=== PATIENT | male | born 1970 | race Caucasian/White ===

== ENCOUNTER 2018-03-13 16:24 | Emergency (ER) | payer OTHER ==
[2018-03-13] MEDS ORDERED: Adacel (T-DAP) 0.5 ML SYRINGE ONE (17:31)
== END 2018-03-13 17:34 | disposition home or self-care (01) ==
LOC: ERS 16:24
DX: S51.852A Open bite of left forearm, initial encounter (principal); S50.811A Abrasion of right forearm, initial encounter; N40.0 Benign prostatic hyperplasia without lower urinary tract symptoms; E78.5 Hyperlipidemia, unspecified; Z79.899 Other long term (current) drug therapy; W55.01XA Bitten by cat, initial encounter
CPT/HCPCS: 90471; 90715

== ENCOUNTER 2018-03-23 16:44 | Emergency (ER) | payer OTHER ==
[2018-03-23] MEDS ORDERED: Fentanyl 100 MCG/2 ML VIAL ONE ×2 (17:54→18:01)
[2018-03-23] MEDS ORDERED: Lidocaine 2% Jelly 5 ML TUBE ONE (18:01)
[2018-03-23 19:13] LABS: Bilirubin Moderate (Negative); Blood, Urine Large (Negative); Clarity CLOUDY (Clear); Glucose, Urine (Dipstick) Negative (Negative); Leukocyte Small (Negative); Nitrite Positive (Negative); Protein, Urine (Dipstick) 100 mg/dL (Neg-Trace); Specific Gravity, Urine 1.005 (1.002-1.036); Urobilinogen 0.2 mg/dL (0.2-1.0); pH, Urine 5.5 (5.0-9.0)
[2018-03-23 19:15] LABS: Bacteria/HPF None Seen HPF (None Seen); Hyaline Casts/LPF 0-3 HYALINE CAST LPF (0-3 Hyaline); RBC/HPF GREATER THAN 50-TNTC HPF (0-3); Squamous Epithelial None Seen HPF (0-3); WBC/HPF None Seen HPF (0-3)
--- NOTE | 2018-03-24 02:03 | CON ---
DATE OF CONSULTATION: 03/23/2018 REASON FOR CONSULTATION: Gross hematuria and urinary retention after transurethral resection of prostate. HISTORY OF PRESENT ILLNESS: Mr. Holger Bazzi is a pleasant 47-year-old, retired from the [employer] with a long-standing issue of urologic issues, primarily related to his obstructive prostate gland. The patient also has a history of Peyronie disease and Dupuytren contractures of the hands. He reports that he underwent a transurethral resection of the prostate gland on 03/22/2018 in [place]. He reports that he had an indwelling Luna catheter overnight. This was subsequently removed this morning and after a trial of void, he was allowed home. The patient drove with his from [place] to [place], [place] where his urinary retention symptoms became too severe and he struggled for about 2 hours to urinate and was able to get a small amount of urine out. This was very bloody. He subsequently presented to the [facility] and was evaluated here in the emergency department. The patient underwent an attempted catheterization, but a catheter could not be placed. I was consulted due to the fact that the patient was in obvious urinary retention and had recent genitourinary surgery and was passing gross blood per urethra. ALLERGIES: NO KNOWN DRUG ALLERGIES. MEDICATIONS: Complete outpatient medication list consists of: 1. Tamsulosin 0.4 mg p.o. daily. 2. Atorvastatin 40 mg p.o. daily. 3. Phenazopyridine 100 mg p.o. t.i.d. PAST MEDICAL HISTORY: 1. BPH with obstruction. 2. History of Peyronie disease. 3. History of Dupuytren disease. PAST SURGICAL HISTORY: Transurethral resection of prostate gland on 03/22/2018. FAMILY MEDICAL HISTORY: The patient's father is of lung cancer with metastasis. The patient's mother is alive. No family history of genitourinary difficulties. REVIEW OF SYSTEMS: CONSTITUTIONAL: Negative for fever or chills. HEAD, EYES, EARS, NOSE, AND THROAT: Negative. CARDIOVASCULAR: Negative review of systems. No current chest pain or palpitations. RESPIRATORY: Negative. No current history of chest cold, shortness of breath, or cough. GASTROINTESTINAL: Negative. GENITOURINARY: The patient reports that he is unable to void, has gross blood passing per urethra, also reports a history of Peyronie disease with curvature and angulation. MUSCULOSKELETAL: Negative except for the history of contractures in his hands as noted. SKIN: Negative. NEUROLOGIC: Negative. ENDOCRINOLOGIC: No history of diabetes. HEMATOLOGIC: Negative. No blood clotting disorders. PHYSICAL EXAMINATION: VITAL SIGNS: Blood pressure is 99/89, pulse is 98, respirations are 22, temperature is 98.9. The patient reports that his pain level at a level of 10. HEAD, EYES, EARS, NOSE, AND THROAT: Extraocular movements are intact. Sclerae are anicteric. Oropharynx is clear. NECK: Supple. LUNGS: Clear to auscultation bilaterally. CARDIAC: Regular rate and rhythm without murmur, rub, or gallop. ABDOMEN: Soft and nontender except in the suprapubic area where the patient reports tenderness on palpation. GENITOURINARY: Phallus is circumcised, swelled, obvious external lesion. The patient is attempting to void and is able to. There is gross blood at the patient's urethral meatus. Digital rectal examination was not performed due to the recent surgery. EXTREMITIES: Appear within normal limits. NEUROLOGIC: The patient is able to ambulate and is able to support his weight. All 4 extremities are functional. ASSESSMENT AND PLAN: Urinary retention, gross blood at the meatus. Plan will be for a cystoscopic assessment of this patient. Please see separate procedure note for cystoscopy and additional indications and commentary. Job ID: [id number]
--- NOTE | 2018-03-25 11:16 | OP ---
DATE OF PROCEDURE: 03/23/2018 PREPROCEDURE DIAGNOSES: 1. Urinary retention. 2. Gross hematuria. 3. BPH with obstruction, status post transurethral resection of prostate gland on 03/22/2018 at the [facility] in [place]. POSTPROCEDURE DIAGNOSES: 1. Urinary retention. 2. Gross hematuria. 3. BPH with obstruction, status post transurethral resection of prostate gland on 03/22/2018 at the [facility] in [place]. 4. Clot retention in the prostatic bed. PROCEDURE PERFORMED: Cystourethroscopy, [id number]. CONSENT: Written with the patient assent. ANESTHESIA: Fentanyl 100 mcg and local anesthetic per urethra, viscous lidocaine 5 mL, 2%. INDICATIONS AND HISTORY: Mr. Holger Bazzi is a pleasant 47-year-old white male, who underwent a transurethral resection of prostate at the [facility] in [place] on 03/22/2018. His postoperative course was apparently uncomplicated. He had overnight indwelling Luna catheter, which was discontinued on postoperative day #1. He apparently passed a voiding trial in [place] and was discharged home. The patient drove from [place] to and developed severe urinary retention symptoms. He was to void and was in severe pain; subsequently, he presented to [facility] Emergency Department in acute urinary retention with severe pain. The patient was in agreement to proceed with cystoscopic assessment. DESCRIPTION OF PROCEDURE: The patient was appropriately identified and informed written consent was obtained. The patient was prepped and draped in usual sterile fashion using Betadine prep. Urethral meatus had blood present at the tip. There was suprapubic fullness present. Full sterile prep and draping was performed. Cystoscopic assessment was then performed using a 14-[place] [facility] flexible cystourethroscope. This was then introduced per urethra and the patient's urethra was examined. The patient had no evidence of urethral injury of any sort. The sphincter appeared to be functional and using irrigation, we entered the prostate bed, which had a large amount of clot lodged in it, unclear if there was ongoing or continuing bleeding. The patient's bladder was filled with dark bloody colored urine and a thorough evaluation of the bladder could not be obtained. We placed a 0.035 guidewire into the patient's bladder, subsequently introduced a 22-[place] 3-way silicone irrigation catheter into the patient's bladder. This was filled to a 30 mL volume. The patient's bladder was then initially drained of bloody and clot-like material. Subsequently, we hand irrigated the patient's bladder until it was clear and placed the patient on continuous bladder irrigation. The patient's urine was essentially clear after hand irrigation indicating a clot retention episode. DISPOSITION: The patient is suitable for discharge home. The side arm on the irrigation catheter may be plugged. We would recommend running through the existing irrigation bag until it is completed before discharging the patient from the emergency department. The patient should be discharged home with irrigation supplies and he should return to [place] if necessary through the emergency department for further evaluation and assessment if he has further obstruction events. The patient will be provided with irrigation supplies and may hand irrigate if he develops a gross hematuria episode between here and [place]. I think, he would be suitable for home management and evaluation in the Clinic in [place] for a voiding trial next week. Job ID: [id number]
== END 2018-03-23 19:27 | disposition home or self-care (01) ==
LOC: ERS 16:44
DX: N13.9 Obstructive and reflux uropathy, unspecified (principal); I49.9 Cardiac arrhythmia, unspecified; N40.0 Benign prostatic hyperplasia without lower urinary tract symptoms; E78.5 Hyperlipidemia, unspecified; Z79.899 Other long term (current) drug therapy
CPT/HCPCS: 51702; 81003; 81015; 87086; 96374; 96376; J3010

== ENCOUNTER 2018-08-01 19:33 | Emergency (ER) | payer OTHER ==
[2018-08-01] MEDS ORDERED: Ketorolac Tromethamine 30 MG/ML VIAL ONE (19:56)
--- NOTE | 2018-08-01 20:31 | RAD ---
EXAM: LUMBAR SPINE THREE VIEWS: 08/01/18 HISTORY: Back spasm, low back pain. FINDINGS: Postoperative changes at L1-L2 with intradiscal prosthesis and pedicle screws. No significant malalig nment. No acute fracture. IMPRESSION: Postoperative changes at L1-L2 with pedicle screws and intradiscal prosthesis. No acute fracture or dislocation. POS: [facility]
== END 2018-08-01 21:39 | disposition home or self-care (01) ==
LOC: ERS 19:33
DX: M62.830 Muscle spasm of back (principal); N40.0 Benign prostatic hyperplasia without lower urinary tract symptoms; E78.5 Hyperlipidemia, unspecified; F41.9 Anxiety disorder, unspecified; Z79.899 Other long term (current) drug therapy
CPT/HCPCS: 72100; 96374; J1885

== ENCOUNTER 2018-12-31 06:48 | Day surgery (SDC) | payer OTHER ==
[2018-12-28 09:01] VITALS: BMI 32.5
[2018-12-31] MEDS ORDERED: Lorazepam 1 MG TAB ONE (07:42)
[2018-12-31 07:58] VITALS: BP 123/91; TEMP 97.2
--- NOTE | 2018-12-31 09:16 | RAD ---
Myelogram of cervical and lumbar spine CLINICAL HISTORY: Pain PROCEDURE: Informed consent was obtained. [employer] Operator imaging was performed. Patient was placed in a prone position and the skin of the low back was prepped and draped in a standard sterile fashion. Topical anesthesia was achieved with buffered 1% lidocaine. 22-gauge spinal needle was then advanced uneventf ully into the thecal sac from a posterior para midline approach at the left L4 level. 9 cc of radiopaque contrast was instilled under low pressure into the thecal sac, upon return of clear colorl ess CSF the needle hub. Imaging was stored for documentation. Needle was removed. Patient tolerated the procedure well, without complication evident. Patient was then transferred to CT to undergo subsequent CT myelogram imaging. Reference separate riley leyva(s) for additional details. FINDINGS: Intraoperative imaging reveals a needle overlying the lumbar spinal canal, with subsequent instillation of radiopaque contrast within the thecal sac. Fluoroscopy data:0.3minutes, 37mcg/sq m IMPRESSION: Technically successful myelogram, as above.
--- NOTE | 2018-12-31 09:24 | CT ---
CT LUMBAR SPINE WITH CONTRAST: HISTORY: Back Pain. COMPARISON: No prior CT exams of the lumbar spine available. FINDINGS: The conus medullaris is normal in morphology, terminating at the superior L2 level. There is mild congenital AP diameter narrowing of the vertebral canal and neural foramina, on the bas is of shortened pedicles. There is intradiscal fusion device of L1-2 disc space, and bilateral pedicle screws of L1 and L2 with bilateral vertical interconnecting rods. This does produce streak artifact that limits visualization within this region. L1-2:Mild effacement of ventral thecal sac due to broad-based osteophyte, left asymmetric. There is m ild to moderate osseous narrowing of the left neural foramen and mild right neural foraminal narrowing. L2-3:Broad-based disc osteophyte is present with mild disc space narrowing and mild bilateral facet o steoarthritis. Moderate central canal stenosis with crowding of the bilateral traversing L3 nerve roots. Moderate narrowing of left and mild narrowing of right neural foramen. There is mild bilateral facet osteoarthritis. L3-4:There is a broad-based disc osteophyte with superimposed central disc protrusion. Mild to modera te narrowing of the central canal. Mild bilateral neural foraminal narrowing. There is mild bilateral facet osteoarthritis. L4-5:Broad-based mild disc bulge. No significant central canal stenosis. There is mild narrowing of t he bilateral neural foramina and mild bilateral facet osteoarthritis. L5-S1:No significant central canal stenosis. Mild bilateral neural foraminal narrowing and mild bilat eral facet osteoarthritis. 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 Transcribed Date/Time: 12/31/2018 9:37 AM
--- NOTE | 2018-12-31 09:30 | CT ---
CT CERVICAL SPINE WITH CONTRAST: HISTORY: Neck Pain. COMPARISON: None. FINDINGS: The craniocervical junction is unremarkable. Extensive anterior and posterior fusion spans the C3-C7 segments, including multilevel anterior plate and vertebral body screw fixation, intervening disc space prostheses, and multilevel bilateral pedicle screw with bilateral vertical interconnecting rods, producing marked beam attenuation artifac t, limiting evaluation. There is slight reversal of the normal cervical curvature. C1-2:No significant stenosis. C2-3:Broad-based disc osteophyte mildly effaces the ventral thecal sac with slight ventral cord anastacia ening. There is bilateral uncinate process hypertrophy with mild bilateral neural foraminal stenosis. C3-4:Right asymmetric broad-based osteophyte with right ventral hemicord flattening. There is right g reater than left uncinate process hypertrophy as well as facet hypertrophy with mild bilateral neural foraminal narrowing. C4-5:Right asymmetric osteophyte with mild ventral cord effacement. There is bilateral uncinate proce ss and facet hypertrophy with moderate left and mild right neural foraminal narrowing. C5-6:Right paracentral focal osteophyte effaces ventral aspect of cervical spinal cord. There is mild bilateral neural foraminal narrowing due to uncinate process and facet hypertrophy. C6-7: Not reliably visualized due to extensive streak artifact mild effacement of ventral thecal sac is suggested by osteophyte ridge. Probable mild bilateral osseous narrowing of neural foramina. C7-T1:Mild effacement of ventral thecal sac by disc osteophyte formation. There is bilateral osseous narrowing of the neural foramina. IMPRESSION: 1. Extensive operative change of the anterior and posterior column of the cervical spine producing p rominent beam attenuation artifact which limits evaluation. 2. There are multilevel degenerative changes as outlined above which result in multilevel central can al narrowing with cord effacement, and bilateral osseous compromise of the neural foramina. Transcribed Date/Time: 12/31/2018 9:42 AM
[2018-12-31] MEDS ORDERED: Iopamidol-M 300 61% 15 ML VIAL ONE (12:39)
== END 2018-12-31 09:50 | disposition home or self-care (01) ==
LOC: RAD 06:48
PROVIDERS: ATTEND Neurological Surgery
PROC: B01B1ZZ Fluoroscopy of Spinal Cord using Low Osmolar Contrast (ICD-10-PCS; principal; 2018-12-31)
DX: M48.02 Spinal stenosis, cervical region (principal); M51.26 Other intervertebral disc displacement, lumbar region; M48.061 Spinal stenosis, lumbar region without neurogenic claudication; M51.36 Other intervertebral disc degeneration, lumbar region; Z79.899 Other long term (current) drug therapy; Z98.1 Arthrodesis status; Z91.040 Latex allergy status
CPT/HCPCS: 62305; 72126; 72132; Q9967

== ENCOUNTER 2019-02-06 07:34 | Outpatient (CLI) | payer OTHER ==
[2019-02-06 10:49] LABS: Hemoglobin 16.5 g/dL (14.0-18.0); Mean Corpuscular HGB CONC 34.8 g/dL (32.0-36.0); Mean Corpuscular Hemoglobin 32.4 pg (27.0-31.0); Mean Platelet Volume 9.2 fL (7.4-10.4); Platelet Count 186 thou/uL (130-400); RBC Distribution Width 11.8 % (11.5-14.5); White Blood Cell (WBC) Count 5.7 thou/uL (4.8-10.8)
[2019-02-06 11:40] LABS: Anion Gap 15 mmol/L (10-20); BUN (Urea Nitrogen) 16 mg/dL (8.9-20.6); Calc. Creatinine Clearance 0 mL/min (70-130); Calcium 9.5 mg/dL (7.8-10.44); Carbon Dioxide 23 mmol/L (22-29); Chloride 105 mmol/L (98-107); Estimated GFR-MDRD 74; Glucose 83 mg/dL (70-105); Potassium 3.6 mmol/L (3.5-5.1); Sodium 139 mmol/L (136-145)
--- NOTE | 2019-02-07 07:05 | EKG ---
Test Reason : Blood Pressure : / mmHG Vent. Rate : 087 BPM Atrial Rate : 087 BPM P-R Int : 124 ms QRS Dur : 088 ms QT Int : 354 ms P-R-T Axes : 068 061 048 degrees QTc Int : 425 ms Normal sinus rhythm Normal ECG When compared with ECG of 27-APR-2016 19:32, No significant change was found Confirmed by DR. Nicko HOWE (3) on 02/07/2019 7:05:12 AM Referred By: IRVING Confirmed By:DR. Nicko HOWE
== END 2019-02-06 07:35 | disposition home or self-care (01) ==
LOC: LABBT 07:34
PROVIDERS: ATTEND Neurological Surgery
DX: Z01.818 Encounter for other preprocedural examination (principal); M54.16 Radiculopathy, lumbar region
CPT/HCPCS: 80048; 85027; 93005; 93010

== ENCOUNTER 2019-02-06 08:30 | Inpatient (IN) | payer OTHER ==
[2019-02-06 08:35] VITALS: BMI 32.5
[2019-02-11] MEDS ORDERED: Sodium Chloride 0.9% 10 ML ONE (06:35)
[2019-02-11] MEDS ORDERED: Fentanyl 100 MCG/2 ML VIAL ONE ×4 (07:03→09:17)
[2019-02-11] MEDS ORDERED: Meperidine HCl/PF 25 MG/ML VIAL ONE (08:45)
[2019-02-11] MEDS ORDERED: Tamsulosin HCl 0.4 MG CAP ONE (08:59)
[2019-02-11] MEDS ORDERED: Ondansetron PF 4 MG/2 ML Vial ONE (09:11)
[2019-02-11] MEDS ORDERED: Ketorolac Tromethamine 30 MG/ML VIAL ONE (10:39)
[2019-02-11] MEDS ORDERED: Glycopyrrolate 0.2 MG/ML 5 ML SYRINGE ONE (10:39)
[2019-02-11] MEDS ORDERED: Dexamethasone 20 MG/5 ML VIAL ONE (10:39)
[2019-02-11] MEDS ORDERED: Lidocaine 1% PF 5 ML VIAL ONE (10:39)
[2019-02-11] MEDS ORDERED: PROPOFOL 200 MG/20 ML VIAL ONE (10:39)
[2019-02-11] MEDS ORDERED: Rocuronium Bromide 10 MG/ML (10ML VIAL) ONE (10:39)
--- NOTE | 2019-02-11 14:30 | OP ---
DATE OF PROCEDURE: 02/11/2019 LINOLEUM TILE FLOOR LAYER: [place]. PROCEDURE PERFORMED: Removal of hardware, L1-L2; expiration of spinal fusion, L1-L2; revision of fusion, L1-L2; BMP; cancellous bone chips. DESCRIPTION OF PROCEDURE: The patient was brought to the operating room and intubated. He was rolled in a prone position on gel-filled chest rolls. An incision was reopened and the L1-L2 level was exposed. We removed the previous hardware without difficulty. We explored the spinal fusion and could not be convinced whether it was solid or not. We then prepared the posterolateral surfaces for the purpose of arthrodesis and a combination of BMP on Gelfoam with cancellous bone chips was laid over the lateral and posterolateral surfaces for the purpose of arthrodesis. Vancomycin powder was applied. MAC hemostasis was secured. The wound was closed in anatomic layers. Job ID: [id number]
--- NOTE | 2019-02-12 11:17 | DIS ---
DATE OF ADMISSION: 02/11/2019 DATE OF DISCHARGE: 02/11/2019 The patient is a 48-year-old male, who underwent removal of hardware at L1, L2 and expiration of spinal fusion on 02/11/2019. Following the surgery, he was transitioned to Day Stay, where his pain was well controlled with p.o. medications. He was tolerating a regular diet, and he was voiding appropriately. He ambulated without any difficulty. He was subsequently discharged to home that day. I discussed home care and precautions and the patient was prescribed Crandall and Zanaflex. He will follow up in 2 weeks in the office. Job ID: [id number]
== END 2019-02-11 10:50 | disposition home or self-care (01) | DRG 460 ==
LOC: SURG A 02-11 05:49
PROVIDERS: ADMIT Neurological Surgery; ATTEND Neurological Surgery
PROC: 0SG00K1 Fusion of Lumbar Vertebral Joint with Nonautologous Tissue Substitute, Posterior Approach, Posterior Column, Open Approach (ICD-10-PCS; principal; 2019-02-11)
PROC: 0QP004Z Removal of Internal Fixation Device from Lumbar Vertebra, Open Approach (ICD-10-PCS; 2019-02-11)
PROC: 3E0U0GB Introduction of Recombinant Bone Morphogenetic Protein into Joints, Open Approach (ICD-10-PCS; 2019-02-11)
DX: M54.16 Radiculopathy, lumbar region (principal); E78.5 Hyperlipidemia, unspecified; G43.909 Migraine, unspecified, not intractable, without status migrainosus; N40.0 Benign prostatic hyperplasia without lower urinary tract symptoms; Z85.828 Personal history of other malignant neoplasm of skin; Z79.899 Other long term (current) drug therapy; Z88.8 Allergy status to other drugs, medicaments and biological substances; Z91.048 Other nonmedicinal substance allergy status
CPT/HCPCS: 76000; J0131; J0690; J1100; J1885; J2001; J2175; J2405; J2704; J3010; J3370; J3490

== ENCOUNTER 2019-02-12 20:26 | Emergency (ER) | payer OTHER | END 2019-02-12 20:57 | disposition home or self-care (01) | LOC: ERS 20:26 | DX: Z48.817 Encounter for surgical aftercare following surgery on the skin and subcutaneous tissue (principal); I49.9 Cardiac arrhythmia, unspecified; E78.5 Hyperlipidemia, unspecified; F41.9 Anxiety disorder, unspecified ==

== ENCOUNTER 2019-02-25 00:17 | Emergency (ER) | payer OTHER | END 2019-02-25 02:11 | disposition home or self-care (01) | LOC: ERS 00:17 | DX: L50.0 Allergic urticaria (principal); I49.9 Cardiac arrhythmia, unspecified; N40.0 Benign prostatic hyperplasia without lower urinary tract symptoms; E78.5 Hyperlipidemia, unspecified; E78.00 Pure hypercholesterolemia, unspecified; F41.9 Anxiety disorder, unspecified; Z79.899 Other long term (current) drug therapy | CPT/HCPCS: 99282 ==

== ENCOUNTER 2019-03-06 15:44 | Outpatient (CLI) | payer OTHER ==
--- NOTE | 2019-03-06 17:43 | RAD ---
LUMBAR SPINE: 03/06/19 Two views. HISTORY: Follow-up surgery. Skin marleni are noted posterior to the L2-3 level. Interbody disc implant is in place at the L1-[address] The vertebral bodies maintain height and alignment. Mild degenerative osteophytes. Mild facet hyp ertrophy. IMPRESSION: Postoperative and degenerative changes noted. POS: [facility]
== END 2019-03-06 15:45 | disposition home or self-care (01) ==
LOC: TBSIIMAG 15:44
PROVIDERS: ATTEND Neurological Surgery
DX: M47.26 Other spondylosis with radiculopathy, lumbar region (principal); Z96.7 Presence of other bone and tendon implants
CPT/HCPCS: 72100

== ENCOUNTER 2019-04-10 07:01 | Inpatient (IN) | payer OTHER ==
[2019-04-09 10:19] VITALS: BMI 32.5
[2019-04-10 07:51] LABS: #Basophils 0.1 thou/uL (0.0-0.2); #Eosinphils 0.2 thou/uL (0.0-0.7); #Lymphocytes 2.4 thou/uL (1.20-3.40); #Monocytes 0.5 thou/uL (0.11-0.59); #Neutrophils 2.7 thou/uL (1.40-6.50); %Basophils 1.1 % (0.0-1.0); %Lymphocytes 40.7 % (21.0-51.0); %Monocytes 9.2 % (0.0-10.0); %Neutrophils 45.1 % (42.0-75.0); Hemoglobin 16.7 g/dL (14.0-18.0); Mean Corpuscular HGB CONC 35.9 g/dL (32.0-36.0); Mean Corpuscular Hemoglobin 33.5 pg (27.0-31.0); Mean Corpuscular Volume 93.5 fL (78.0-98.0); Mean Platelet Volume 8.7 fL (7.4-10.4); Platelet Count 186 thou/uL (130-400); RBC Distribution Width 11.7 % (11.5-14.5); Red Blood Cell (RBC) Count 4.97 mill/uL (4.70-6.10); White Blood Cell (WBC) Count 5.9 thou/uL (4.8-10.8)
[2019-04-10 08:04] LABS: Anion Gap 13 mmol/L (10-20); BUN (Urea Nitrogen) 11 mg/dL (8.9-20.6); Calc. Creatinine Clearance 120 mL/min (70-130); Calcium 9.2 mg/dL (7.8-10.44); Carbon Dioxide 28 mmol/L (22-29); Chloride 104 mmol/L (98-107); Estimated GFR-MDRD 75; Glucose 103 mg/dL (70-105); Potassium 3.9 mmol/L (3.5-5.1); Sodium 141 mmol/L (136-145)
[2019-04-10] MEDS ORDERED: Fentanyl 100 MCG/2 ML VIAL ONE ×3 (09:34→13:17)
[2019-04-10] MEDS ORDERED: Midazolam HCl 2 mg/2 ml Vial ONE ×2 (09:34→09:36)
[2019-04-10] MEDS ORDERED: Famotidine/PF 20 mg/2ml Vial ONE (09:35)
[2019-04-10] MEDS ORDERED: Ondansetron PF 4 MG/2 ML Vial ONE ×2 (09:36→10:00)
[2019-04-10] MEDS ORDERED: Succinylcholine Chloride 20 MG/ML 10 ml SYRINGE FS ONE (10:00)
[2019-04-10] MEDS ORDERED: PROPOFOL 200 MG/20 ML VIAL ONE (10:00)
[2019-04-10] MEDS ORDERED: Dexamethasone 20 MG/5 ML VIAL ONE (10:00)
[2019-04-10] MEDS ORDERED: Glycopyrrolate 0.2 MG/ML 5 ML SYRINGE ONE (10:00)
[2019-04-10] MEDS ORDERED: Rocuronium Bromide 10 MG/ML (10ML VIAL) ONE (10:00)
[2019-04-10] MEDS ORDERED: Lidocaine 1% PF 5 ML VIAL ONE (10:00)
--- NOTE | 2019-04-10 12:15 | OP ---
DATE OF PROCEDURE: 04/10/2019 DIRECTOR LIFE SCIENCES: Nava Ware PA-C PROCEDURES PERFORMED: Exploration of spinal fusion C3 though C7, removal of hardware C3 through C7, posterolateral arthrodesis, demineralized bone matrix C3 through C7. DESCRIPTION OF PROCEDURE: The patient was brought to the operating room and intubated. He was rolled in a prone position on gel-filled chest rolls. The previous incision was reopened and the prior hardware was identified. The rods and nuts were removed without difficulty. The screws, however, were quite difficult to remove. Ultimately, we were unable to remove right C6, right C7, and left C7 as they were completely plastered into the bone. Next, the wound was extensively irrigated and MAC hemostasis was secured. The posterolateral surfaces were prepared for arthrodesis. As during exploration, we could not be certain that there was adequate arthrodesis. We laid demineralized bone matrix over the lateral recesses for arthrodesis from C3 through C7. Vancomycin powder was then applied, and the wound was closed in anatomic layers over drain. Job ID: [id number]
[2019-04-10] MEDS ORDERED: Promethazine HCl 25 MG/ML VIAL SLOW IVP PRN (12:24)
[2019-04-10] MEDS ORDERED: Ondansetron HCl/PF 4 MG/2 ML Vial IVP PRN (12:24)
[2019-04-10] MEDS ORDERED: HYDROmorphone 2 MG/ML VIAL SLOW IVP PRN (12:24)
[2019-04-10] MEDS ORDERED: Promethazine HCl 25 MG/ML VIAL IM PRN ×2 (12:24→15:41)
[2019-04-10] MEDS ORDERED: HYDROmorphone 0.5 MG/0.5 ML SYRINGE ONE ×2 (12:50→13:01)
[2019-04-10] MEDS ORDERED: diphenhydrAMINE 50 MG/ML VIAL ONE (13:05)
[2019-04-10] MEDS ORDERED: Morphine 4 MG/ML VIAL SLOW IVP PRN (15:41)
[2019-04-10] MEDS ORDERED: diphenhydrAMINE 25 MG CAP PO PRN (15:41)
[2019-04-10] MEDS ORDERED: Mag-Al 1200 mg/1200 mg/30 ML UDCUP PO PRN (15:41)
[2019-04-10] MEDS ORDERED: HYDROcodone/Acetaminophen 10/325 mg Tablet PO PRN ×2 (15:41)
[2019-04-10] MEDS ORDERED: Cyclobenzaprine 10 MG TAB PO PRN (15:41)
[2019-04-10] MEDS ORDERED: Promethazine HCl 12.5 MG SUPP PR PRN (15:41)
[2019-04-10] MEDS ORDERED: traMADol HCl 50 MG TAB PO PRN ×2 (15:41)
[2019-04-10] MEDS ORDERED: Milk Of Magnesia 30 ML UDCUP PO PRN (15:41)
[2019-04-10] MEDS ORDERED: Ondansetron PF 4 MG/2 ML Vial IVP PRN (15:41)
[2019-04-10] MEDS ORDERED: diphenhydrAMINE 50 MG/ML VIAL IVP PRN (15:41)
[2019-04-10] MEDS ORDERED: Promethazine 25 MG TAB PO PRN (15:41)
[2019-04-10] MEDS ORDERED: Gabapentin 100 MG CAP PO PRN (15:50)
[2019-04-10] MEDS ORDERED: Morphine 2 MG/ML SYRINGE SLOW IVP PRN (16:00)
[2019-04-10] MEDS: CEFAZOLIN 2 GM in Premix Bag 1 BAG IVPB SCH ×2 (16:53→23:48)
[2019-04-10] MEDS: Sodium Chloride 0.9% 1,000 ML IV SCH (17:40)
[2019-04-10] MEDS ORDERED: Atorvastatin Calcium 40 MG TAB PO SCH (21:00)
[2019-04-11] MEDS ORDERED: Tamsulosin HCl 0.4 MG CAP PO SCH (06:00)
[2019-04-11] MEDS: Sodium Chloride 0.9% 1,000 ML IV SCH (06:04)
[2019-04-11 07:15] VITALS: BP 112/70; TEMP 98.3
[2019-04-11] MEDS: CEFAZOLIN 2 GM in Premix Bag 1 BAG IVPB SCH (10:11)
--- NOTE | 2019-04-11 15:34 | DIS ---
DATE OF ADMISSION: 04/10/2019 DATE OF DISCHARGE: 04/11/2019 HOSPITAL COURSE: The patient is a 48-year-old male, known to us for evaluation of his persistent neck pain, who underwent exploration of his posterior cervical fusion and removal of hardware on 04/10/2019. Following the surgery, he was transitioned to the Med/Surg floor, where his pain has been well-controlled with p.o. medications, he has been tolerating a regular diet, he has been voiding appropriately, and he has been up ambulating easily throughout the department. On exam of the patient this morning, he is awake, alert, in no acute distress. He has free active range of motion of all extremities. No focal motor weakness. Sensation is intact to light touch. Incision is clean, dry, and intact. KENDRA drain had no output overnight. We will plan to remove the KENDRA drain and dismiss to home. I have discussed home care precautions. We will follow up with the patient in 2 weeks. Job ID: [id number]
== END 2019-04-11 10:00 | disposition home or self-care (01) | DRG 473 ==
LOC: SURG A 07:01 → SURG B 14:55
PROVIDERS: ADMIT Neurological Surgery; ATTEND Neurological Surgery
PROC: 0RG20K1 Fusion of 2 or more Cervical Vertebral Joints with Nonautologous Tissue Substitute, Posterior Approach, Posterior Column, Open Approach (ICD-10-PCS; principal; 2019-04-10)
PROC: 0PP304Z Removal of Internal Fixation Device from Cervical Vertebra, Open Approach (ICD-10-PCS; 2019-04-10)
DX: M54.2 Cervicalgia (principal)
CPT/HCPCS: 36415; 76000; 80048; 85025; C1768; J0690; J1100; J1170; J1200; J2001; J2250; J2405; J2704; J3010; J3370; J3490; Q0163; S0028

== ENCOUNTER 2019-04-25 08:34 | Outpatient (CLI) | payer OTHER ==
--- NOTE | 2019-04-25 10:17 | RAD ---
CERVICAL SPINE 3 VIEWS: Date: 04/25/2019 HISTORY: Cervical pain, postop follow-up. FINDINGS: Extensive postoperative changes. Interbody implants at C3-4, C4-5, C5-6, and C6-7. Implant with screw s anteriorly at C3-4 and C4-5. Anterior plate and screws at C5, C6, and C7. Posterior pedicle screws at C5, C6, and C7. Posterior el ement fusion and posterior laminectomy change. The posterior alignment of the vertebral bodies are preserved, although spondylosis appears to imping e on the spinal canal at C3-4 and C4-5. Posterior skin marleni indicate recent surgery. IMPRESSION: Extensive postoperative changes as described. POS: [facility]
== END 2019-04-25 08:35 | disposition home or self-care (01) ==
LOC: TBSIIMAG 08:34
PROVIDERS: ATTEND Neurological Surgery
DX: M54.2 Cervicalgia (principal); Z98.1 Arthrodesis status
CPT/HCPCS: 72040

== ENCOUNTER 2019-05-20 08:56 | Outpatient (CLI) | payer OTHER ==
--- NOTE | 2019-05-20 11:31 | MRI ---
MRI Cervical spine without contrast: HISTORY: Neck pain. History of prior neck surgery. Patient claims a right arm weakness and numbness. COMPARISON: None FINDINGS: The craniocervical junction is unremarkable. No significant cord signal abnormality. There are extensive postoperative changes of the cervical spine related to anterior as well as director of occupational therapy ior cervical fusion as evidenced by metallic susceptibility artifact with anterior plates and screws seen at the C3-4, C4-5, C5-6, C6-7 levels. There is metallic susceptibility artifact posterior ly with what appear to be pedicular screws at the C6-7 level. There is an irregular fluid collection seen within the soft tissues posterior to the cervical spine and levels of postsurgical ch anges with fluid collection extending from the level of the C3 vertebral body to the superior aspect of the T1 vertebral body. The largest axial dimensions of this fluid collection are seen at th e level of the lower cervical spine where the collection measures approximately 4 cm AP x3.4 cm transverse. Findings are likely attributable to postoperative fluid collection. Infection cannot be e ntirely excluded based on this exam. Few scattered areas of metallic susceptibility artifact are seen in the subcutaneous soft tissues likely attributable to prior postsurgical change. Low signal in tensity foci are seen within the fluid collection the subcutaneous soft tissues suggesting debris. There is suggestion of laminectomy defects on the left involving the upper cervical spine. C1-2: No significant narrowing. C2-3: There is a mild disc osteophyte complex with central disc protrusion. This narrows the ventral subarachnoid space with encroachment on the anterior aspect of the spinal cord. No high-grade neural foraminal narrowing is present. C3-4: There is posterior osteophyte formation at this level. This narrows the ventral subarachnoid sp js with slight flattening the anterior aspect of the spinal cord. No high-grade neural foraminal narrowing is present. C4-5: Posterior osteophyte formation is present. This results in effacement of the ventral subarachno id space with slight mass effect on the central aspect of the spinal cord. Normal signal intensity is present in the spinal cord. The right neural foramen is patent, but there is mild to moderate left -sided neural foraminal narrowing primarily related to bony encroachment. C5-6: There is mild posterior osteophyte formation greater centrally. This narrows the ventral subara chnoid space with slight mass effect on the anterior central aspect of the spinal cord. Right neural foramen is patent with mild left-sided neural foraminal narrowing. C6-7: Central spinal canal is patent. No high-grade neural foraminal narrowing is present. C7-T1: Central spinal canal is patent. Minimal disc osteophyte complex is present. Due to metallic aragon sceptibility artifact posteriorly, the left neural foramen is not well evaluated and the degree of neural foraminal narrowing is unable to be adequately assessed. There is probably at least mild right -sided neural foraminal narrowing. IMPRESSION: 1. Postoperative changes related to anterior as well as posterior fusion with fusion from C3 to C7 as described above. There is an irregular fluid collection seen throughout the subcutaneous soft tissues at the level of the postsurgical change which may be related to a postoperative collection, b ut infection cannot be excluded based on this examination. Pseudomeningocele would be a differential consideration, but this is more irregular in appearance than expected for findings of a pseudomeningocele. Low signal intensity irregular foci are seen within the larger portions of the fluid collection likely related to small amount of debris. 2. No high-grade central canal narrowing is seen at any level. There is mild to moderate left-sided n eural foraminal narrowing at C4-5 level. The left neural foramen at the C7-T1 level is unable to be adequately assessed due to susceptibility artifact preventing adequate evaluation.
--- NOTE | 2019-05-20 11:57 | RAD ---
CERVICAL SPINE 4 VIEWS: Date: 05/20/2019 HISTORY: Neck pain. Prior surgery. COMPARISON: 04/25/2019. FINDINGS: Postoperative changes noted anteriorly from C3 through C7 and posteriorly at C6 and C7. No significan t malalignment. No abnormal translation between flexion and extension. No significant prevertebral so ft tissue swelling. Stable appearance of prior study, 04/25/2019. IMPRESSION: Overall stable extensive postoperative changes cervical spine. POS: [facility]
== END 2019-05-20 08:57 | disposition home or self-care (01) ==
LOC: TBSIIMAG 08:56
PROVIDERS: ATTEND Physician Assistant
DX: M54.2 Cervicalgia (principal); M54.5 Low back pain; M48.02 Spinal stenosis, cervical region; Z98.1 Arthrodesis status; Z98.890 Other specified postprocedural states
CPT/HCPCS: 72050; 72141

== ENCOUNTER 2019-10-19 10:18 | Emergency (ER) | payer OTHER ==
[2019-10-19] MEDS ORDERED: Ondansetron PF 4 MG/2 ML Vial ONE (10:51)
[2019-10-19] MEDS ORDERED: Morphine 4 MG/ML VIAL ONE (10:51)
[2019-10-19 10:58] LABS: #Basophils 0.1 thou/uL (0.0-0.2); #Eosinphils 0.3 thou/uL (0.0-0.7); #Lymphocytes 1.8 thou/uL (1.20-3.40); #Monocytes 0.4 thou/uL (0.11-0.59); #Neutrophils 4.1 thou/uL (1.40-6.50); %Basophils 0.9 % (0.0-1.0); %Eosinophils 3.8 % (0.0-10.0); %Lymphocytes 26.9 % (21.0-51.0); %Monocytes 6.4 % (0.0-10.0); Hemoglobin 16.7 g/dL (14.0-18.0); Mean Corpuscular HGB CONC 34.5 g/dL (32.0-36.0); Mean Corpuscular Volume 92.9 fL (78.0-98.0); Mean Platelet Volume 8.9 fL (7.4-10.4); Platelet Count 180 thou/uL (130-400); RBC Distribution Width 12.2 % (11.5-14.5); White Blood Cell (WBC) Count 6.7 thou/uL (4.8-10.8)
[2019-10-19 11:12] LABS: PTT 31.6 sec (22.9-36.1); Prothrombin Time 12.8 sec (12.0-14.7)
[2019-10-19 11:26] LABS: ALT (SGPT) 30 U/L (8-55); AST (SGOT) 25 U/L (5-34); Albumin 4.9 g/dL (3.5-5.0); Alkaline Phosphatase 109 U/L (40-110); Anion Gap 12 mmol/L (10-20); BUN (Urea Nitrogen) 12 mg/dL (8.9-20.6); Bilirubin, Total 1.3 mg/dL (0.2-1.2); CK (CPK) 133 U/L (30-200); Calc. Creatinine Clearance 0 mL/min (70-130); Calcium 9.9 mg/dL (7.8-10.44); Carbon Dioxide 26 mmol/L (22-29); Chloride 105 mmol/L (98-107); Estimated GFR-MDRD 76; Globulin 3.1 g/dL (2.4-3.5); Glucose 106 mg/dL (70-105); Lipase 23 U/L (8-78); Potassium 4.2 mmol/L (3.5-5.1); Sodium 139 mmol/L (136-145)
[2019-10-19 12:06] LABS: Bilirubin Negative (Negative); Blood, Urine Negative (Negative); Clarity Clear (Clear); Glucose, Urine (Dipstick) Normal (Negative); Ketone, Urine Negative (Negative); Leukocyte Negative Leu/uL (Negative); Nitrite Negative (Negative); Protein, Urine (Dipstick) 20 mg/dL (Neg-Trace); Specific Gravity, Urine 1.024 (1.002-1.036); Urobilinogen Normal mg/dL (Less than 2)
--- NOTE | 2019-10-19 12:37 | CT ---
CT ABDOMEN AND PELVIS WITH IV CONTRAST: Date: 10/19/2019 HISTORY: Severe left lower quadrant abdominal pain. FINDINGS: Comparison made with exam of 11/23/2014. Lung bases are clear. Interval changes of cholecystectomy are seen. There are changes of fatty infilt ration of the liver. The spleen, pancreas, adrenal glands, and kidneys are normal. No free air, free fluid, or lymphadenopathy seen in the abdomen or pelvis. There is mild colonic diverticulosis. There is mild pericolonic inflammatory change in the left lower quadrant. No abnormally loculated fluid col lection is seen to suggest abscess formation. There are postop changes in the lumbar spine. IMPRESSION: 1. Left lower quadrant diverticulitis. 2. Fatty liver. POS: [facility]
[2019-10-19] MEDS ORDERED: Iopamidol-370 76% 500 ML 1 ML ONE (13:21)
== END 2019-10-19 13:13 | disposition home or self-care (01) ==
LOC: ERS 10:18
DX: K57.32 Diverticulitis of large intestine without perforation or abscess without bleeding (principal); N40.0 Benign prostatic hyperplasia without lower urinary tract symptoms; E78.5 Hyperlipidemia, unspecified; E78.00 Pure hypercholesterolemia, unspecified; F41.9 Anxiety disorder, unspecified; Z79.899 Other long term (current) drug therapy
CPT/HCPCS: 36415; 74177; 80053; 81003; 82550; 83605; 83690; 85025; 85610; 85730; 86850; 86900; 86901; 94760; 96361; 96374; 96375; J2270; J2405; Q9967

== ENCOUNTER 2020-01-20 13:04 | Emergency (ER) | payer OTHER ==
--- NOTE | 2020-01-20 13:42 | RAD ---
Chest one view HISTORY: Dyspnea. Positive COVID test. COMPARISON: 04/27/2016. FINDINGS: Cardiac silhouette and pulmonary vasculature are unremarkable. Mediastinum is midline. Cerv ical spine metallic hardware partially visualized. No lobar consolidation or evidence of pneumothorax. No focal infiltrate evident. IMPRESSION : No active cardiopulmonary abnormalities are demonstrated.
[2020-01-20 14:49] LABS: #Eosinphils 0.1 thou/uL (0.0-0.7); #Monocytes 0.4 thou/uL (0.11-0.59); #Neutrophils 2.2 thou/uL (1.40-6.50); %Basophils 0.7 % (0.0-1.0); %Eosinophils 2.3 % (0.0-10.0); %Lymphocytes 41.4 % (21.0-51.0); %Monocytes 9.2 % (0.0-10.0); %Neutrophils 46.3 % (42.0-75.0); Hemoglobin 16.1 g/dL (14.0-18.0); Mean Corpuscular HGB CONC 34.5 g/dL (32.0-36.0); Mean Corpuscular Hemoglobin 31.9 pg (27.0-31.0); Mean Corpuscular Volume 92.5 fL (78.0-98.0); Platelet Count 176 thou/uL (130-400); RBC Distribution Width 12.1 % (11.5-14.5); Red Blood Cell (RBC) Count 5.05 mill/uL (4.70-6.10); White Blood Cell (WBC) Count 4.8 thou/uL (4.8-10.8)
[2020-01-20 15:15] LABS: ALT (SGPT) 33 U/L (8-55); AST (SGOT) 25 U/L (5-34); Albumin 4.6 g/dL (3.5-5.0); Alkaline Phosphatase 110 U/L (40-110); Anion Gap 12 mmol/L (10-20); BUN (Urea Nitrogen) 13 mg/dL (8.9-20.6); Bilirubin, Total 1.4 mg/dL (0.2-1.2); CK (CPK) 113 U/L (30-200); Calc. Creatinine Clearance 0 mL/min (70-130); Carbon Dioxide 24 mmol/L (22-29); Chloride 105 mmol/L (98-107); Estimated GFR-MDRD 77; Globulin 2.6 g/dL (2.4-3.5); Glucose 99 mg/dL (70-105); Lipase 22 U/L (8-78); Potassium 4.2 mmol/L (3.5-5.1); Protein, Total 7.2 g/dL (6.0-8.3); Sodium 137 mmol/L (136-145)
[2020-01-20] MEDS ORDERED: Aspirin Chewable 81 MG TAB ONE (15:16)
== END 2020-01-20 16:35 | disposition home or self-care (01) ==
LOC: ERS 13:04
DX: R07.9 Chest pain, unspecified (principal); N40.0 Benign prostatic hyperplasia without lower urinary tract symptoms; E78.5 Hyperlipidemia, unspecified; E78.00 Pure hypercholesterolemia, unspecified; F41.9 Anxiety disorder, unspecified; Z79.899 Other long term (current) drug therapy
CPT/HCPCS: 71045; 80053; 82550; 83690; 83880; 84484; 85025; 85379; 93005; 94760

== ENCOUNTER → 2020-07-02 | Day surgery (SDC) | payer OTHER | LOC: ENDO/OP 07:34 | PROVIDERS: ATTEND Internal Medicine Gastroenterology | DX: R13.19 Other dysphagia (principal); K21.9 Gastro-esophageal reflux disease without esophagitis; E78.00 Pure hypercholesterolemia, unspecified; N40.0 Benign prostatic hyperplasia without lower urinary tract symptoms; Z79.899 Other long term (current) drug therapy; Z88.8 Allergy status to other drugs, medicaments and biological substances; Z91.048 Other nonmedicinal substance allergy status | CPT/HCPCS: 91010 ==

== ENCOUNTER 2020-08-17 15:47 | Emergency (ER) | payer OTHER | END 2020-08-17 18:23 | disposition home or self-care (01) | LOC: ERS 15:47 | DX: I80.8 Phlebitis and thrombophlebitis of other sites (principal); Z79.899 Other long term (current) drug therapy; N40.0 Benign prostatic hyperplasia without lower urinary tract symptoms; E78.5 Hyperlipidemia, unspecified; E78.00 Pure hypercholesterolemia, unspecified ==

== ENCOUNTER → 2020-09-30 | Day surgery (SDC) | payer OTHER ==
[2020-09-28 14:35] VITALS: BMI 32.8
[~2020-09-30] MED LIST: Acetaminophen 500 MG TAB ONE; Iopamidol-M 300 61% 15 ML VIAL ONE
[2020-09-30 07:40] VITALS: BP 117/78; TEMP 97.2
== END ==
LOC: RAD 06:45
PROVIDERS: ATTEND Neurological Surgery
DX: M50.11 Cervical disc disorder with radiculopathy, high cervical region (principal); M48.02 Spinal stenosis, cervical region; M47.812 Spondylosis without myelopathy or radiculopathy, cervical region; E78.5 Hyperlipidemia, unspecified; K21.9 Gastro-esophageal reflux disease without esophagitis; N40.0 Benign prostatic hyperplasia without lower urinary tract symptoms; Z88.8 Allergy status to other drugs, medicaments and biological substances; Z98.1 Arthrodesis status; Z91.048 Other nonmedicinal substance allergy status; Z79.899 Other long term (current) drug therapy
CPT/HCPCS: 62302; 72050; 72126

== ENCOUNTER 2020-12-09 17:07 | Emergency (ER) | payer OTHER ==
[~2020-12-09 17:07] MED LIST changes: -Acetaminophen 500 MG TAB ONE; +Iopamidol-370 76% 500 ML 1 ML ONE; -Iopamidol-M 300 61% 15 ML VIAL ONE
[2020-12-09 18:01] LABS: #Basophils 0.1 thou/uL (0.0-0.2); #Eosinphils 0.1 thou/uL (0.0-0.7); #Monocytes 0.4 thou/uL (0.11-0.59); #Neutrophils 3.7 thou/uL (1.40-6.50); %Basophils 0.9 % (0.0-1.0); %Eosinophils 2.3 % (0.0-10.0); %Lymphocytes 31.5 % (21.0-51.0); %Monocytes 6.4 % (0.0-10.0); %Neutrophils 58.8 % (42.0-75.0); Hemoglobin 16.3 g/dL (14.0-18.0); Mean Corpuscular HGB CONC 33.7 g/dL (32.0-36.0); Mean Corpuscular Hemoglobin 31.3 pg (27.0-31.0); Mean Corpuscular Volume 92.9 fL (78.0-98.0); Mean Platelet Volume 8.9 fL (7.4-10.4); Platelet Count 189 thou/uL (130-400); Red Blood Cell (RBC) Count 5.18 mill/uL (4.70-6.10); White Blood Cell (WBC) Count 6.4 thou/uL (4.8-10.8)
[2020-12-09 18:46] LABS: ALT (SGPT) 35 U/L (8-55); AST (SGOT) 26 U/L (5-34); Albumin 4.2 g/dL (3.5-5.0); Alkaline Phosphatase 90 U/L (40-110); Anion Gap 12 mmol/L (10-20); BUN (Urea Nitrogen) 13 mg/dL (8.4-25.7); Bilirubin, Total 1.8 mg/dL (0.2-1.2); Calc. Creatinine Clearance 0 mL/min (70-130); Calcium 9.6 mg/dL (7.8-10.44); Carbon Dioxide 25 mmol/L (22-29); Chloride 104 mmol/L (98-107); Globulin 2.9 g/dL (2.4-3.5); Glucose 104 mg/dL (70-105); Potassium 3.5 mmol/L (3.5-5.1); Protein, Total 7.1 g/dL (6.0-8.3); Sodium 137 mmol/L (136-145)
== END 2020-12-09 20:19 | disposition home or self-care (01) ==
LOC: ERS 17:07
DX: R07.89 Other chest pain (principal); E78.5 Hyperlipidemia, unspecified; E78.00 Pure hypercholesterolemia, unspecified; Z79.899 Other long term (current) drug therapy
CPT/HCPCS: 36415; 71046; 71275; 80053; 83880; 84484; 85025; 93005; 94760; Q9967

== ENCOUNTER 2021-02-01 08:02 | Emergency (ER) | payer OTHER ==
[2021-02-01] MEDS ORDERED: Morphine 4 MG/ML VIAL ONE (08:34)
[2021-02-01] MEDS ORDERED: Ondansetron PF 4 MG/2 ML Vial ONE (08:34)
[2021-02-01 08:41] LABS: Bilirubin Negative (Negative); Blood, Urine Negative (Negative); Clarity Clear (Clear); Glucose, Urine (Dipstick) Normal (Negative); Ketone, Urine Negative (Negative); Leukocyte Negative Leu/uL (Negative); Nitrite Negative (Negative); Protein, Urine (Dipstick) Negative (Neg-Trace); Specific Gravity, Urine 1.017 (1.002-1.036); Urobilinogen Normal mg/dL (Less than 2); pH, Urine 5.5 (5.0-9.0)
[2021-02-01 08:42] LABS: #Basophils 0.1 thou/uL (0.0-0.2); #Eosinphils 0.2 thou/uL (0.0-0.7); #Lymphocytes 1.9 thou/uL (1.20-3.40); #Monocytes 0.5 thou/uL (0.11-0.59); #Neutrophils 3.4 thou/uL (1.40-6.50); %Lymphocytes 31.9 % (21.0-51.0); %Monocytes 7.8 % (0.0-10.0); %Neutrophils 56.3 % (42.0-75.0); Hemoglobin 16.5 g/dL (14.0-18.0); Mean Corpuscular HGB CONC 34.7 g/dL (32.0-36.0); Mean Corpuscular Hemoglobin 32.3 pg (27.0-31.0); Mean Corpuscular Volume 93.1 fL (78.0-98.0); Mean Platelet Volume 8.7 fL (7.4-10.4); Platelet Count 172 thou/uL (130-400); Red Blood Cell (RBC) Count 5.12 mill/uL (4.70-6.10)
[2021-02-01 09:06] LABS: ALT (SGPT) 29 U/L (8-55); AST (SGOT) 22 U/L (5-34); Albumin 4.2 g/dL (3.5-5.0); Alkaline Phosphatase 95 U/L (40-110); Anion Gap 11 mmol/L (10-20); BUN (Urea Nitrogen) 12 mg/dL (8.4-25.7); Bilirubin, Total 1.4 mg/dL (0.2-1.2); Calc. Creatinine Clearance 0 mL/min (70-130); Calcium 8.9 mg/dL (7.8-10.44); Carbon Dioxide 24 mmol/L (22-29); Chloride 107 mmol/L (98-107); Globulin 2.6 g/dL (2.4-3.5); Glucose 111 mg/dL (70-105); Lipase 26 U/L (8-78); Potassium 3.8 mmol/L (3.5-5.1); Protein, Total 6.8 g/dL (6.0-8.3); Sodium 138 mmol/L (136-145)
[2021-02-01] MEDS ORDERED: Iopamidol-370 76% 500 ML 1 ML ONE (13:29)
== END 2021-02-01 11:23 | disposition home or self-care (01) ==
LOC: ERS 08:02
DX: R10.32 Left lower quadrant pain (principal); R07.9 Chest pain, unspecified; R94.31 Abnormal electrocardiogram [ECG] [EKG]; E78.5 Hyperlipidemia, unspecified; E78.00 Pure hypercholesterolemia, unspecified; Z87.19 Personal history of other diseases of the digestive system; Z79.899 Other long term (current) drug therapy
CPT/HCPCS: 36415; 71045; 74177; 80053; 81003; 83690; 84484; 85025; 93005; 96374; 96375; J2270; J2405; Q9967

== ENCOUNTER 2021-11-16 12:23 | Outpatient (CLI) | payer OTHER | END 2021-11-16 12:24 | disposition home or self-care (01) | LOC: RAD 12:23 | PROVIDERS: ATTEND Specialist | DX: M47.812 Spondylosis without myelopathy or radiculopathy, cervical region (principal); Z98.1 Arthrodesis status | CPT/HCPCS: 72052 ==

== ENCOUNTER 2022-11-08 08:26 | Outpatient (CLI) | payer OTHER | END 2022-11-08 08:27 | disposition home or self-care (01) | LOC: SCSMRI 08:26 | PROVIDERS: ATTEND Specialist | DX: M47.24 Other spondylosis with radiculopathy, thoracic region (principal) | CPT/HCPCS: 72146 ==

== ENCOUNTER 2023-09-24 11:17 | Emergency (ER) | payer OTHER ==
[~2023-09-24 11:17] MED LIST changes: -Iopamidol-370 76% 500 ML 1 ML ONE; +Iopamidol-370 76% 500 ML MDV (1 ML CHARGE) ONE
[2023-09-24 12:33] LABS: #Basophils 0.03 10x3/uL (0.0-0.2); %Basophils 0.3 % (0.0-1.0); %Eosinophils 1.3 % (0.0-10.0); %Lymphocytes 26.9 % (21.0-51.0); %Monocytes 7.1 % (0.0-10.0); %Neutrophils 63.4 % (42.0-75.0); Hematocrit 48.8 % (42.0-52.0); Hemoglobin 16.7 g/dL (14.0-18.0); Mean Corpuscular HGB CONC 34.2 g/dL (32.0-36.0); Mean Corpuscular Hemoglobin 31.4 pg (27.0-31.0); Mean Corpuscular Volume 91.7 fL (78.0-98.0); Mean Platelet Volume 10.4 fL (7.4-10.4); Platelet Count 214 10x3/uL (130-400); RBC Distribution Width 12.8 % (11.5-14.5); Red Blood Cell (RBC) Count 5.32 mill/uL (4.70-6.10)
[2023-09-24 12:55] LABS: ALT (SGPT) 105 U/L (8-55); AST (SGOT) 56 U/L (5-34); Albumin 3.6 g/dL (3.5-5.0); Alkaline Phosphatase 102 U/L (40-110); Anion Gap 14 mmol/L (10-20); BUN (Urea Nitrogen) 14 mg/dL (8.4-25.7); Bilirubin, Total 1.8 mg/dL (0.2-1.2); Calc. Creatinine Clearance 0 mL/min (70-130); Calcium 9.1 mg/dL (7.8-10.44); Carbon Dioxide 23 mmol/L (22-29); Chloride 104 mmol/L (98-107); Estimated GFR 104; Globulin 3.1 g/dL (2.4-3.5); Glucose 92 mg/dL (70-105); Potassium 3.6 mmol/L (3.5-5.1); Protein, Total 6.7 g/dL (6.0-8.3); Sodium 137 mmol/L (136-145)
[2023-09-24 12:59] LABS: Troponin I Less than 0.010 ng/mL (< 0.028)
[2023-09-24 14:13] LABS: Bacteria/HPF None Seen HPF (None Seen); Bilirubin Negative (Negative); Blood, Urine Negative (Negative); CAUTI Indications for Culture Dysuria,urgency,freq; Clarity Clear (Clear); Glucose, Urine (Dipstick) Normal (Negative); Ketone, Urine Negative (Negative); Leukocyte Negative Leu/uL (Negative); Nitrite Negative (Negative); Protein, Urine (Dipstick) Negative (Neg-Trace); RBC/HPF None Seen HPF (0-3); Specific Gravity, Urine 1.018 (1.002-1.036); Squamous Epithelial None Seen HPF (0-3); Urobilinogen Normal mg/dL (Less than 2); WBC/HPF 0-3 HPF (0-3); pH, Urine 6.5 (5.0-9.0)
[2023-09-24 14:15] LABS: Urine Culture Reflex No No
== END 2023-09-24 17:03 | disposition home or self-care (01) ==
LOC: ERS 11:17
DX: J18.9 Pneumonia, unspecified organism (principal); J32.9 Chronic sinusitis, unspecified; I48.91 Unspecified atrial fibrillation; E78.00 Pure hypercholesterolemia, unspecified; Z79.899 Other long term (current) drug therapy
CPT/HCPCS: 36415; 70450; 70486; 71045; 71275; 80053; 81001; 83605; 83880; 84484; 85025; 86141; 87040; 93005

== ENCOUNTER 2024-05-02 13:19 | Outpatient (CLI) | payer OTHER | END 2024-05-02 13:20 | disposition home or self-care (01) | LOC: BICRAD 13:19 | PROVIDERS: ATTEND Neurological Surgery | DX: M54.6 Pain in thoracic spine (principal) | CPT/HCPCS: 72070 ==

== ENCOUNTER 2024-05-14 08:15 | Outpatient (CLI) | payer OTHER ==
[2024-05-14] MEDS ORDERED: Iopamidol 370 76% 100 ML VIAL ONE (11:28)
== END 2024-05-14 08:16 | disposition home or self-care (01) ==
LOC: BICCT 08:15
PROVIDERS: ATTEND Physician Assistant Medical
DX: K21.9 Gastro-esophageal reflux disease without esophagitis (principal); K92.1 Melena; R13.12 Dysphagia, oropharyngeal phase; R10.32 Left lower quadrant pain
CPT/HCPCS: 74177; Q9967

== ENCOUNTER 2025-01-13 11:49 | Outpatient (CLI) | payer OTHER ==
[2025-01-13] MEDS ORDERED: E-Z-HD 98% W/W 340GM BOT (x-ray ONLY) ONE (11:57)
[2025-01-13] MEDS ORDERED: Barium Sulfate 96% 176 GM BOT (xray ONLY) ONE (11:57)
== END 2025-01-13 11:50 | disposition home or self-care (01) ==
LOC: RAD 11:49
PROVIDERS: ATTEND Internal Medicine Gastroenterology
DX: K21.9 Gastro-esophageal reflux disease without esophagitis (principal); R13.12 Dysphagia, oropharyngeal phase
CPT/HCPCS: 74220

== ENCOUNTER → 2025-01-13 | Day surgery (SDC) | payer OTHER | LOC: SDC 09:54 | PROVIDERS: ATTEND Internal Medicine Gastroenterology | PROC: 4A0B8BZ Measurement of Gastrointestinal Pressure, Via Natural or Artificial Opening Endoscopic (ICD-10-PCS; principal; 2025-01-13) | DX: K21.9 Gastro-esophageal reflux disease without esophagitis (principal); E78.00 Pure hypercholesterolemia, unspecified; N40.0 Benign prostatic hyperplasia without lower urinary tract symptoms; Z98.52 Vasectomy status; Z85.828 Personal history of other malignant neoplasm of skin; Z90.49 Acquired absence of other specified parts of digestive tract; Z88.8 Allergy status to other drugs, medicaments and biological substances; Z91.048 Other nonmedicinal substance allergy status; Z79.899 Other long term (current) drug therapy | CPT/HCPCS: 74220; 91010 ==